=== PATIENT | male | born 1975 | race Caucasian/White ===

== ENCOUNTER → 2023-03-06 | Outpatient (REF) | LOC: M PLAIMG 13:46 | PROVIDERS: ATTEND Internal Medicine | DX: R06.02 Shortness of breath (principal) ==

== ENCOUNTER → 2023-09-16 | Outpatient (CLI) | payer OTHER | LOC: M SLEEP 20:00 | PROVIDERS: ATTEND Registered Nurse | DX: R09.02 Hypoxemia (principal) ==

== ENCOUNTER → 2025-03-29 | Outpatient (CLI) | payer OTHER | LOC: M SLEEP 20:00 | PROVIDERS: ATTEND Physician Assistant Surgical | DX: G47.33 Obstructive sleep apnea (adult) (pediatric) (principal); R06.83 Snoring ==